=== PATIENT | female | born 1980 | race Caucasian/White ===

== ENCOUNTER 2020-08-04 11:16 | Outpatient (REF) | payer OTHER, SELFPAY ==
[2020-08-05 08:38] LABS: HBS Num1 170.31 mIU/mL (0-7.99); ~Hepatitis B Surface Antibody REACTIVE (Nonreactive)
[2020-08-05 21:52] LABS: Rubella IgG Antibody 4.62 index; Rubeola IgG (Measles) >300.00 AU/mL
== END 2020-08-04 11:17 | disposition home or self-care (01) ==
LOC: HO.OHS 11:16
PROVIDERS: Visit Provider Internal Medicine
DX: Z02.1 Encounter for pre-employment examination (principal); Z11.1 Encounter for screening for respiratory tuberculosis
CPT/HCPCS: 86481; 86706; 86735; 86762; 86765; 86787

== ENCOUNTER 2020-09-23 06:59 | Outpatient (REF) | payer OTHER, SELFPAY ==
[2020-09-23 07:20] LABS: COVID-19 Test Negative (Negative)
== END 2020-09-23 07:00 | disposition home or self-care (01) ==
LOC: HO.EMPCOV 06:59
PROVIDERS: PCP Internal Medicine Sports Medicine; Visit Provider Internal Medicine
DX: Z20.828 Contact with and (suspected) exposure to other viral communicable diseases (principal)
CPT/HCPCS: 87635; C9803

== ENCOUNTER → 2021-04-06 08:12 | Outpatient (BNVA) | payer OTHER, SELFPAY | PROVIDERS: PCP Internal Medicine Sports Medicine; Visit Provider Physician Assistant ==

== ENCOUNTER → 2021-05-22 15:19 | Outpatient (BNVA) | payer OTHER, SELFPAY | PROVIDERS: PCP Internal Medicine Sports Medicine; Visit Provider Physician Assistant ==

== ENCOUNTER 2021-05-27 08:30 | Outpatient (REF) | payer OTHER, SELFPAY ==
[2021-05-27 11:24] LABS: MANUAL DIFF FLAG NO
[2021-05-27 11:35] LABS: Basophils Absolute Auto 0.1 X10*3/uL (0.0-0.2); Basophils Percent Auto 0.5 % (0-2); Eosinophils Absolute Auto 0.2 X10*3/uL (0.0-0.4); Eosinophils Percent Auto 2.5 % (0-4); Hematocrit 39.5 % (37-47); Hemoglobin 12.4 g/dl (12.0-16.0); Imm Gran Abs Auto 0.04 X10*3/uL (0.00-0.03); Imm Gran Pct Auto 0.4 % (0.0-0.4); Lymphocytes Absolute Auto 1.7 X10*3/uL (1.2-4.9); Lymphocytes Percent Auto 17.4 % (20-40); Mean Corpuscular HGB Conc 31.4 g/dl (31.0-35.0); Mean Corpuscular Hemoglobin 27.3 pg (27.0-33.0); Mean Platelet Volume 9.4 fL (9.4-12.3); Monocytes Absolute Auto 0.6 X10*3/uL (0.1-1.2); Monocytes Percent Auto 6.6 % (2-11); Neutrophils Absolute Auto 7.1 X10*3/uL (2.0-8.3); Neutrophils Percent Auto 72.6 % (45-73); Platelet Count 463 X10*3/uL (160-400); Red Blood Count 4.54 X10*6/uL (4.20-5.50); Red Cell Distribution Width 13.7 % (11.0-16.0); White Blood Count 9.8 X10*3/uL (4.8-10.8)
[2021-05-27 11:42] LABS: Estimated Average Glucose 114 mg/dL; Hemoglobin A1c % 5.6 %
[2021-05-27 12:11] LABS: Alanine Aminotransferase 15 U/L (0-31); Alkaline Phosphatase 111 U/L (39-117); Anion Gap 15 (12-20); Aspartate Amino Transferase 17 U/L (5-31); Bilirubin Total 0.5 mg/dL (0.0-1.0); Blood Urea Nitrogen 8 mg/dL (9-16); C Reactive Protein 1.37 mg/dL (< or = 0.50); Calcium 9.2 mg/dL (8.4-10.2); Carbon Dioxide 25 mmol/L (22-29); Chloride 103 mmol/L (96-108); Cholesterol 151 mg/dL; Estimated Glomerular Filt Rate > 60; Glucose Random 103 mg/dL (60-115); HDL Cholesterol 47 mg/dL; Iron 42 mcg/dL (30-160); LDL Cholesterol Calculated 91 mg/dl; Percent Iron Saturation 13 % (15-50); Potassium 4.6 mmol/L (3.3-5.1); Sodium 138 mmol/L (135-145); Total Iron Binding Capacity 329 mcg/dL (228-428); Total Protein 7.5 g/dL (6.5-8.0); Triglycerides 65 mg/dL; Unsaturated Iron Binding 287 ug/dL
[2021-05-27 12:33] LABS: Ferritin 42 ng/mL (10-250); TSH reflex Free T4 1.19 uIU/mL (0.32-4.0); Vitamin D 25-OH Total 10.1 ng/mL (>30)
[2021-05-29 04:33] LABS: Folate 5.1 ng/mL (> or = 4.0); Vitamin B12 267 pg/mL (200-900)
[2021-05-29 11:36] LABS: Calcium (PTHI) 9.3 mg/dL (8.6-10.2); PTHI 89 pg/mL (14-64)
[2021-05-29 18:07] LABS: Insulin Level Total 18.8 uIU/mL
[2021-05-30 07:02] LABS: Zinc 80 mcg/dL (60-130)
[2021-05-31 17:37] LABS: Vitamin A 28 mcg/dL (38-98)
[2021-06-01 14:47] LABS: Vitamin B1 9 nmol/L (8-30)
== END 2021-05-27 08:31 | disposition home or self-care (01) ==
LOC: HO.HMGCLDS 08:30
PROVIDERS: PCP Internal Medicine; Visit Provider Physician Assistant
DX: E66.01 Morbid (severe) obesity due to excess calories (principal)
CPT/HCPCS: 36415; 80053; 80061; 82306; 82607; 82728; 82746; 83036; 83525; 83540; 83970; 84425; 84443; 84590; 84630; 85025; 86140

== ENCOUNTER → 2021-06-07 08:07 | Outpatient (BNVA) | payer OTHER, SELFPAY | PROVIDERS: PCP Internal Medicine; Visit Provider Dietitian, Registered | DX: E66.01 Morbid (severe) obesity due to excess calories (principal); Z68.44 Body mass index [BMI] 60.0-69.9, adult | CPT/HCPCS: 97803 ==

== ENCOUNTER 2021-08-10 07:15 | Outpatient (REF) | payer OTHER, SELFPAY ==
--- NOTE | ~2021-08-10 | MM_ITS ---
EXAMINATION: MM SCREENING DIGITAL BREAST TOMOSYNTHESIS, BILATERAL CLINICAL INFORMATION: Screening. Asymptomatic. Age 41. No prior breast imaging. No known family history breast cancer. The lifetime risk of breast cancer based on the Tyrer-Cuzick Model is 13%. COMPARISON: None (current study represents initial baseline exam). TECHNIQUE: Digital breast tomosynthesis is performed in both the craniocaudal and mediolateral oblique views along with computer-aided detection (CAD). Synthesized 2D images are generated from the tomosynthesis. Additional bilateral CC views and additional bilateral MLO views are provided. FINDINGS: There are scattered areas of fibroglandular density (ACR BI-RADS breast composition Category b). There are no significant masses, abnormal calcifications, or other abnormalities. There is an incidental intramammary node mid upper outer right breast. Bilateral grouped dermal calcifications are present posterior medial breasts. MM/MM tomosynthesis screening BI IMPRESSION: No mammographic evidence of malignancy. ASSESSMENT: BI-RADS 2: Benign RECOMMENDATION: Routine annual mammography screening. This patient's information was entered into a reminder system with a target due date for their next mammogram.
== END 2021-08-10 07:16 | disposition home or self-care (01) ==
LOC: HO.MAMMO 07:15
PROVIDERS: Visit Provider Internal Medicine
DX: Z12.31 Encounter for screening mammogram for malignant neoplasm of breast (principal)
CPT/HCPCS: 77063; 77067

== ENCOUNTER 2021-08-19 12:27 | Outpatient (REF) | payer OTHER, SELFPAY ==
--- NOTE | ~2021-08-19 | XR_ITS ---
EXAMINATION: XR CHEST CLINICAL INFORMATION: SOB on exertion COMPARISON: None TECHNIQUE: 2 views of the chest were obtained. FINDINGS: No significant abnormality is noted involving the heart, lungs, mediastinum, bony thorax or soft tissues. XR/XR chest 2V IMPRESSION: Unremarkable examination.
== END 2021-08-19 12:28 | disposition home or self-care (01) ==
LOC: HO.HMGCX 12:27
PROVIDERS: PCP Internal Medicine; Visit Provider Physician Assistant
DX: R06.02 Shortness of breath (principal)
CPT/HCPCS: 71046

== ENCOUNTER 2022-04-26 08:23 | Outpatient (REF) | payer OTHER, SELFPAY ==
[2022-04-26 08:47] LABS: MANUAL DIFF FLAG NO
[2022-04-26 09:02] LABS: Basophils Absolute Auto 0.1 X10*3/uL (0.0-0.2); Basophils Percent Auto 0.5 % (0-2); Eosinophils Absolute Auto 0.2 X10*3/uL (0.0-0.4); Eosinophils Percent Auto 1.6 % (0-4); Hematocrit 38.8 % (37.0-47.0); Hemoglobin 12.4 g/dl (12.0-16.0); Imm Gran Abs Auto 0.06 X10*3/uL (0.00-0.03); Imm Gran Pct Auto 0.5 % (0.0-0.4); Lymphocytes Absolute Auto 1.8 X10*3/uL (1.2-4.9); Mean Corpuscular Hemoglobin 27.1 pg (27.0-33.0); Mean Corpuscular Volume 84.9 fL (80.0-98.0); Mean Platelet Volume 9.2 fL (9.4-12.3); Monocytes Absolute Auto 0.9 X10*3/uL (0.1-1.2); Monocytes Percent Auto 7.4 % (2-11); Neutrophils Absolute Auto 8.9 x10*3/uL (2.0-8.3); Platelet Count 438 X10*3/uL (160-400); Red Blood Count 4.57 X10*6/uL (4.20-5.50); Red Cell Distribution Width 13.4 % (11.0-16.0); White Blood Count 11.8 X10*3/uL (4.8-10.8)
[2022-04-26 09:39] LABS: Alanine Aminotransferase 12 U/L (0-31); Albumin Level 3.8 g/dL (3.5-5.0); Alkaline Phosphatase 128 U/L (39-117); Anion Gap 10 (12-20); Aspartate Amino Transferase 12 U/L (5-31); Bilirubin Total 0.4 mg/dL (0.0-1.0); Blood Urea Nitrogen 5 mg/dL (9-16); Calcium 8.8 mg/dL (8.4-10.2); Carbon Dioxide 27 mmol/L (22-29); Chloride 106 mmol/L (96-108); Cholesterol 158 mg/dL; Estimated Glomerular Filt Rate > 60; Glucose Random 108 mg/dL (60-115); HDL Cholesterol 43 mg/dL; LDL Cholesterol Calculated 100 mg/dl; Potassium 4.2 mmol/L (3.3-5.1); Sodium 139 mmol/L (135-145); Total Protein 7.2 g/dL (6.5-8.0); Triglycerides 77 mg/dL
[2022-04-26 10:01] LABS: Thyroid Stimulating Hormone 1.16 uIU/mL (0.32-4.0); Vitamin D 25-OH Total 13.3 ng/mL (>30)
== END 2022-04-26 08:24 | disposition home or self-care (01) ==
LOC: HO.LAB 08:23
PROVIDERS: PCP Internal Medicine; Visit Provider Internal Medicine
DX: Z13.29 Encounter for screening for other suspected endocrine disorder (principal); Z13.21 Encounter for screening for nutritional disorder; Z13.0 Encounter for screening for diseases of the blood and blood-forming organs and certain disorders involving the immune mechanism; Z13.220 Encounter for screening for lipoid disorders
CPT/HCPCS: 36415; 80053; 80061; 82306; 84443; 85025

== ENCOUNTER 2022-08-16 07:20 | Outpatient (REF) | payer OTHER, SELFPAY ==
--- NOTE | ~2022-08-16 | MM_ITS ---
EXAMINATION: MM SCREENING DIGITAL BREAST TOMOSYNTHESIS, BILATERAL CLINICAL INFORMATION: Screening. Asymptomatic. The lifetime risk of breast cancer based on the Tyrer-Cuzick Model is 13%. COMPARISON: Mammography: August 10, 2021 TECHNIQUE: Digital breast tomosynthesis is performed in both the craniocaudal and mediolateral oblique views along with computer-aided detection (CAD). Synthesized 2D images are generated from the tomosynthesis. FINDINGS: There are scattered areas of fibroglandular density (ACR BI-RADS breast composition Category b). There are no significant masses, abnormal calcifications, or other abnormalities. MM/MM tomosynthesis screening BI IMPRESSION: No significant changes from prior exam. ASSESSMENT: BI-RADS 1: Negative RECOMMENDATION: Routine annual mammography screening. This patient's information was entered into a reminder system with a target due date for their next mammogram.
== END 2022-08-16 07:21 | disposition home or self-care (01) ==
LOC: HO.MAMMO 07:20
PROVIDERS: PCP Internal Medicine; Visit Provider Internal Medicine
DX: Z12.31 Encounter for screening mammogram for malignant neoplasm of breast (principal)
CPT/HCPCS: 77063; 77067

== ENCOUNTER 2023-03-01 10:24 | Outpatient (REF) | payer OTHER, SELFPAY ==
[2023-03-01 11:26] LABS: MANUAL DIFF FLAG NO
[2023-03-01 11:33] LABS: Basophils Absolute Auto 0.1 X10*3/uL (0.0-0.2); Basophils Percent Auto 0.5 % (0-2); Eosinophils Absolute Auto 0.1 X10*3/uL (0.0-0.4); Eosinophils Percent Auto 1.1 % (0-4); Hematocrit 41.8 % (37.0-47.0); Hemoglobin 13.4 g/dl (12.0-16.0); Imm Gran Abs Auto 0.05 X10*3/uL (0.00-0.03); Imm Gran Pct Auto 0.4 % (0.0-0.4); Lymphocytes Percent Auto 15.2 % (20-40); Mean Corpuscular HGB Conc 32.1 g/dl (31.0-35.0); Mean Corpuscular Volume 87.3 fL (80.0-98.0); Mean Platelet Volume 9.6 fL (9.4-12.3); Monocytes Absolute Auto 0.8 X10*3/uL (0.1-1.2); Neutrophils Absolute Auto 10.2 x10*3/uL (2.0-8.3); Neutrophils Percent Auto 76.8 % (45-73); Platelet Count 450 X10*3/uL (160-400); Red Blood Count 4.79 X10*6/uL (4.20-5.50); Red Cell Distribution Width 13.5 % (11.0-16.0); White Blood Count 13.3 X10*3/uL (4.8-10.8)
[2023-03-01 12:07] LABS: Alanine Aminotransferase 17 U/L (0-31); Albumin Level 4.2 g/dL (3.5-5.0); Alkaline Phosphatase 127 U/L (39-117); Anion Gap 11 (12-20); Aspartate Amino Transferase 16 U/L (5-31); Bilirubin Total 0.7 mg/dL (0.0-1.0); Blood Urea Nitrogen 8 mg/dL (9-16); Calcium 9.3 mg/dL (8.4-10.2); Carbon Dioxide 27 mmol/L (22-29); Chloride 104 mmol/L (96-108); Cholesterol 170 mg/dL; Estimated Glomerular Filt Rate > 60; Glucose Fasting 93 mg/dL (60-99); HDL Cholesterol 46 mg/dL; LDL Cholesterol Calculated 111 mg/dl; Potassium 4.4 mmol/L (3.3-5.1); Sodium 138 mmol/L (135-145); Total Protein 7.6 g/dL (6.5-8.0); Triglycerides 67 mg/dL
[2023-03-01 12:39] LABS: Folate 13.1 ng/mL (> or = 4.0); TSH reflex Free T4 1.01 uIU/mL (0.32-4.0); Vitamin B12 306 pg/mL (200-900)
[2023-03-07 22:48] LABS: Vitamin A 27 mcg/dL (38-98)
== END 2023-03-01 10:25 | disposition home or self-care (01) ==
LOC: HO.HMGCLDS 10:24
PROVIDERS: PCP Internal Medicine; Visit Provider Internal Medicine
DX: Z00.01 Encounter for general adult medical examination with abnormal findings (principal); E66.01 Morbid (severe) obesity due to excess calories; E50.9 Vitamin A deficiency, unspecified; E55.9 Vitamin D deficiency, unspecified
CPT/HCPCS: 36415; 80053; 80061; 82306; 82607; 82746; 84443; 84590; 85025

== ENCOUNTER 2023-05-20 10:01 | Outpatient (AMB) | payer OTHER, SELFPAY ==
--- NOTE | 2023-05-20 10:23 | A.OFFPC_ITS ---
Vital Signs 05/20/23 10:25 Height 5 ft 5 in Weight 329 lb BMI 54.7 BP 122/90 H Blood Pressure Location Lt brachial Position Sitting Pulse 86 Pulse Source Pulse Oximeter Pulse Oximetry (%) 99 Oxygen Delivery Method Room Air Intake Visit Reasons: weight check Intake Note: Pt is here today for a wgt check Allergies No Known Allergies Allergy (Verified 05/21/23 01:38) Medication List - Last Reconciled 05/21/23 by Aurora Gil MD semaglutide (weight loss) (Wegovy) 0.25 mg (0.5 mL) subcut QWEEK Tobacco use date assessed: 05/20/23 Dental Screening Dental Screen Date: 05/20/23 Did you have a dental visit in the last 12 months?: No Was dental information given to patient?: Patient has dentist HPI weight check HPI Details 43-year-old lady here today for follow-up regarding weight loss after starting wegovy. She has been on this now for the last month and a half and has lost 14 lb . Tolerating medication well, gets an occasional episode of nausea, with no accompanying vomiting, no done a g of hers couple of days after her injection. FORMERLY [facility] Medical History (Updated 05/21/23 @ 01:43 by Aurora Gli MD) Cervical cancer screening Morbid obesity Vitamin D deficiency Surgical History Hx of excision of mass Family History Mother Hypertension Anemia Esophageal cancer Father Unknown family medical history Sister Hypothyroid Depression Hypertension Paternal Aunt Ovarian cancer Maternal Grandmother Breast cancer Diabetes mellitus Other Mental health disorder Social History Housing: House Alcohol intake: current Alcohol intake frequency: former alcohol drinker Patient Tobacco Use Status: Never used Tobacco e-Cigarette/Vaping Use: Never Used service: No Current occupational status: employed Cognitive needs: No Hearing needs: No Vision needs: No Questionnaire Thrive Questionnaire Date Thrive assessed: 05/20/23 I am a: Patient What is your living situation today?: I have a steady place to live Within the past 12 months, did the food you bought not last and you didn't have the money to get more?: Never true Within the past 12 months, did you worry whether your food would run out before you got money to buy more?: Never true Do you have trouble paying for medicines?: No Do you have trouble getting transportation to medical appointments?: No Do you have trouble paying your heating and electricity bill?: No Do you have trouble taking care of your child, family member or friend?: No Do you have trouble with day-to-day activities such as bathing, preparing meals, shopping, managing finances, etc.?: No Are you currently unemployed and looking for a job?: No Are you interested in more education?: No AUDIT C Alcohol Use Questionnaire (AUDIT-C) 1. How often do you have a drink containing alcohol?: Never Total Score: 0 NEO-7 AMB Questionnaire NEO-7 Date NEO - 7 assessed: 03/28/23 Source: Developed by Drs. Cosme Milian, Fide Boyd, Alvarado Cortez and colleagues, with an educational luciano from [employer]. Review of Systems Const All systems reviewed & are unremarkable except as noted in HPI and below Physical exam (Primary Care) Vital Signs: Last Vital Signs Pulse 86 05/20/23 10:25 BP 122/90 H 05/20/23 10:25 Pulse Ox 99 05/20/23 10:25 Oxygen Delivery Method Room Air 05/20/23 10:25 BMI result Body Mass Index 54.7 Tobacco/Smoking Status: Tobacco use Status Tobacco use date assessed 05/20/23 05/20/23 10:31 Patient Tobacco Use Status Never used Tobacco 05/20/23 10:31 e-Cigarette/Vaping Use Never Used 05/20/23 10:31 Thrive Assessment: Date of Thrive Assessment Date Thrive assessed 05/20/23 05/20/23 13:07 Const General: cooperative and comfortable Nutritional Appearance: obese morbidly obese Orientation/consciousness: patient oriented x3 Resp Auscultation: clear to auscultation bilaterally Cardio Rate: regular rate Rhythm: regular rhythm Heart sounds: S1 normal heart sound present and S2 normal heart sound present Neuro General: patient oriented x3, tone normal, moves all extremities, no focal motor deficits and CN's II-XI intact bilaterally Cognition (Neuro): normal cognition Gait exam (Neuro): Normal gait present Assessment and Plan Assessment & Plan (1) Morbid obesity: Code(s): E66.01 - Morbid (severe) obesity due to excess calories Plan: Tolerating Wegovy., will continue on current dose, refill sent for 0.25 mg injection, to be given subcutaneously weekly continue with adhering to healthy eating habits and getting regular exercise, will see her back for follow-up in June 2023 (2) Vitamin A deficiency: Code(s): E50.9 - Vitamin A deficiency, unspecified (3) Vitamin D deficiency: Code(s): E55.9 - Vitamin D deficiency, unspecified (4) Leukocytosis: Code(s): D72.829 - Elevated white blood cell count, unspecified Orders: Orders Vitamin B12 and Folate 05/20/23 D72.829 - Elevated white blood cell count, unspecified, E50.9 - Vitamin A deficiency, unspecified, E55.9 - Vitamin D deficiency, unspecified, E66.01 - Morbid (severe) obesity due to excess calories Comprehensive [place]. Panel Fast 05/20/23 D72.829 - Elevated white blood cell count, unspecified, E50.9 - Vitamin A deficiency, unspecified, E55.9 - Vitamin D deficiency, unspecified, E66.01 - Morbid (severe) obesity due to excess calories Vitamin A 05/20/23 D72.829 - Elevated white blood cell count, unspecified, E50.9 - Vitamin A deficiency, unspecified, E55.9 - Vitamin D deficiency, unspecified, E66.01 - Morbid (severe) obesity due to excess calories Vitamin D 25-OH Total 05/20/23 D72.829 - Elevated white blood cell count, unspecified, E50.9 - Vitamin A deficiency, unspecified, E55.9 - Vitamin D deficiency, unspecified, E66.01 - Morbid (severe) obesity due to excess calories Complete Blood Count Auto Diff 05/20/23 D72.829 - Elevated white blood cell count, unspecified, E50.9 - Vitamin A deficiency, unspecified, E55.9 - Vitamin D deficiency, unspecified, E66.01 - Morbid (severe) obesity due to excess calories Medications: Refilled semaglutide (weight loss) (Wegovy) 0.25 mg (0.5 mL) subcut QWEEK 2 mL 2RF Coding Level of Care Code Est Pt Level 3 (19116) Diagnoses Morbid obesity E66.01 Vitamin A deficiency E50.9 Vitamin D deficiency E55.9 Leukocytosis D72.829
[2023-05-20 10:25] VITALS: BP 122/90; PULSE 86; O2SAT 99; BMI 54.7
== END 2023-05-20 12:26 | disposition home or self-care (01) ==
PROVIDERS: PCP Internal Medicine; Visit Provider Internal Medicine
DX: E50.9 Vitamin A deficiency, unspecified (principal); E55.9 Vitamin D deficiency, unspecified; E66.01 Morbid (severe) obesity due to excess calories; Z68.43 Body mass index [BMI] 50.0-59.9, adult; D72.829 Elevated white blood cell count, unspecified
CPT/HCPCS: 99213

== ENCOUNTER 2023-06-21 10:17 | Outpatient (AMB) | payer OTHER, SELFPAY ==
[2023-06-21 10:37] VITALS: BP 142/84; PULSE 88; O2SAT 99; BMI 54.7
--- NOTE | 2023-06-21 10:37 | A.OFFPC_ITS ---
Vital Signs 06/21/23 10:37 Height 5 ft 5 in Weight 329 lb BMI 54.7 BP 142/84 H Blood Pressure Location Rt brachial Position Sitting Pulse 88 Pulse Source Pulse Oximeter Pulse Oximetry (%) 99 Oxygen Delivery Method Room Air Intake Visit Reasons: weight check Allergies No Known Allergies Allergy (Verified 05/21/23 01:38) Medication List - Last Reconciled 06/25/23 by Aurora Gil MD semaglutide (weight loss) (Wegovy) 1 mg (0.5 mL) subcut QWEEK Tobacco use date assessed: 05/20/23 HPI weight check HPI Details 43-year-old lady here today for follow-up on her weight loss after starting Wegovy . She has been taking 0.25 mg dose now for the last 3 months, and has lost weight, since last month she has been static with her weight, despite following getting regular exercise. She has not been able to get a prescription for the next higher dose due medication being out of stock. Has been tolerating medication well, with no adverse effects noted [facility] Medical History Cervical cancer screening Morbid obesity Vitamin D deficiency Surgical History Hx of excision of mass Family History Mother Hypertension Anemia Esophageal cancer Father Unknown family medical history Sister Hypothyroid Depression Hypertension Paternal Aunt Ovarian cancer Maternal Grandmother Breast cancer Diabetes mellitus Other Mental health disorder Social History Housing: House Alcohol intake: current Alcohol intake frequency: former alcohol drinker Patient Tobacco Use Status: Never used Tobacco e-Cigarette/Vaping Use: Never Used service: No Current occupational status: employed Cognitive needs: No Hearing needs: No Vision needs: No Questionnaire Thrive Questionnaire Date Thrive assessed: 05/20/23 NEO-7 AMB Questionnaire NEO-7 Date NEO - 7 assessed: 03/28/23 Source: Developed by Drs. Cosme Milian, Fide Boyd, Alvarado Cortez and colleagues, with an educational luciano from [employer]. Review of Systems Const All systems reviewed & are unremarkable except as noted in HPI and below Physical exam (Primary Care) Vital Signs: Last Vital Signs BP 142/84 H 06/21/23 10:37 Tobacco/Smoking Status: Tobacco use Status Tobacco use date assessed 05/20/23 06/21/23 10:37 Patient Tobacco Use Status Never used Tobacco 06/21/23 10:37 e-Cigarette/Vaping Use Never Used 06/21/23 10:37 Thrive Assessment: Date of Thrive Assessment Date Thrive assessed 05/20/23 06/21/23 10:37 Const Nutritional Appearance: obese morbidly obese Orientation/consciousness: patient oriented x3 HENMT Mouth: Normal oral and palatal mucosa present, oropharynx normal and moist mucous membranes Neck Neck: Yes full ROM, Yes no lymphadenopathy and Yes supple Resp Auscultation: clear to auscultation bilaterally Cardio Rate: regular rate Rhythm: regular rhythm Heart sounds: S1 normal heart sound present and S2 normal heart sound present GI Inspection: Yes obesity Palpation (GI): Soft to palpation, nontender, no guarding and no masses Neuro General: patient oriented x3, tone normal, moves all extremities, no focal motor deficits and CN's II-XI intact bilaterally Cognition (Neuro): normal cognition Gait exam (Neuro): Normal gait present Assessment and Plan Assessment & Plan (1) Morbid obesity: Code(s): E66.01 - Morbid (severe) obesity due to excess calories Plan Increased dose of Wegovy to 1 mg, to be injected subcutaneously once a week for the next 4 weeks. 0.5 mg dose is currently unavailable at present time. Continue with adhering to recommended diet and getting regular exercise. Schedule follow-up in 4 weeks Medications: New semaglutide (weight loss) (Wegovy) administer weeks 9 through 12 of therapy 1 mg (0.5 mL) subcut QWEEK 2 mL 0RF E66.01 - Morbid (severe) obesity due to excess calories Discontinued semaglutide (weight loss) (Wegovy) Discontinued Reason: Doctor's Order 0.25 mg (0.5 mL) subcut QWEEK 2 mL 2RF Coding Level of Care Code Est Pt Level 3 (10721) Diagnoses Morbid obesity E66.01
== END 2023-06-21 10:37 | disposition home or self-care (01) ==
PROVIDERS: PCP Internal Medicine; Visit Provider Internal Medicine
DX: E66.01 Morbid (severe) obesity due to excess calories (principal); Z68.43 Body mass index [BMI] 50.0-59.9, adult
CPT/HCPCS: 99213

== ENCOUNTER 2023-07-24 08:33 | Outpatient (REF) | payer OTHER, SELFPAY ==
[2023-07-24 16:35] LABS: CT PCR NOT DETECTED (Not Detect.); NG PCR NOT DETECTED (Not Detect.)
[2023-07-25 12:33] LABS: BV Int Neg Control Negative (Negative); BV Int Pos Control Positive (Positive)
== END 2023-07-24 08:34 | disposition home or self-care (01) ==
LOC: HO.LNP 08:33
PROVIDERS: PCP Internal Medicine; Visit Provider Advanced Practice Midwife
DX: Z12.4 Encounter for screening for malignant neoplasm of cervix (principal); Z11.51 Encounter for screening for human papillomavirus (HPV); Z20.2 Contact with and (suspected) exposure to infections with a predominantly sexual mode of transmission
CPT/HCPCS: 0353U; 87480; 87510; 87624; 87660; 88142

== ENCOUNTER 2023-07-24 08:33 | Outpatient (AMB) | payer OTHER, SELFPAY ==
[2023-07-24 08:55] VITALS: BP 120/90; BMI 53.6
--- NOTE | 2023-07-24 08:55 | A.OFFVIS_ITS ---
Intake Vital Signs 07/24/23 08:55 Height 5 ft 5 in Weight 322 lb BMI 53.6 BP 120/90 H Intake Visit Reasons: OUTREACH COORDINATOR Annual/PCP Ref [employer] Con[employer] Required: No Information Interpreted: non-clinical & clinical Insurance Follow Up Specialist: Insurance Follow Up Specialist Present ([place]) Allergies No Known Allergies Allergy (Verified 07/24/23 08:58) Medication List - Last Reconciled 07/24/23 by Beth Castaneda CNM semaglutide (weight loss) 1.7 mg (0.75 mL) subcut QWEEK Is last menstrual period known: Yes Last menstrual period: 06/30/23 Post menopausal: No HPI OUTREACH COORDINATOR Annual/PCP Ref HPI Details 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 Her last Pap was in 2001 with ASCUS she said she did not know. She had chlamydia in the past she is sexually active with the father of her children. She does not want to get she is not using anything for control at this time. She is actively working on weight loss and using the semaglutide medication and feels that it really is helping her to eat more regularly during the day and she is trying to guide her choices. She will be following up with her primary care provider about this and her blood pressure soon. She tried the weight management program in the past but did not feel it was the right fit for her when 1 of the providers left the system. She has used hormonal methods in the past for control and is not interested in anything with hormones again and would not want an IUD she might be interested in getting her tubes tied but that is all she is interested in. She is trying to make healthier choices with eating and she is walking for exercise she has lost about 30 lb since she started with the medication in February and this renewed efforts [facility] Medical History (Updated 07/24/23 @ 09:46 by Beth Castaneda CNM) Cervical cancer screening Vitamin D deficiency Morbid obesity Surgical History Hx of excision of mass Family History Mother Hypertension Anemia Esophageal cancer Father Unknown family medical history Sister Hypothyroid Depression Hypertension Paternal Aunt Ovarian cancer Maternal Grandmother Breast cancer Diabetes mellitus Other Mental health disorder Social History Housing: House Alcohol intake: current Alcohol intake frequency: former alcohol drinker Patient Tobacco Use Status: Never used Tobacco e-Cigarette/Vaping Use: Never Used service: No Current occupational status: employed Cognitive needs: No Hearing needs: No Vision needs: No Female Reproductive History Menstrual Age of Menarche: 12 Date of last menstrual period: 06/30/23 control method: none Total pregnancies: 5 Full term: 2 Number of Living Children: 2 Ab spontaneous: 3 Date of last pap smear: 09/30/02 (ASCUS) History of abnormal pap smear: Yes (2001 ASCUS) History of STI: Yes Date of Mammogram: 08/16/22 Physical Exam Vital Signs: Last Vital Signs BP 120/90 H 07/24/23 08:55 BMI result Body Mass Index 53.6 Const Other: Extreme obesity General: healthy appearing, comfortable, no acute distress, well developed and alert Nutritional Appearance: average body habitus Orientation/consciousness: patient oriented x3 Limitations: no limitations HEENT Head: Yes normocephalic Neck Neck: Yes normal visual inspection Chest Chest palpation & inspection: normal inspection of the chest Breast/axilla inspection: normal inspection of the breasts and normal inspection of the axillae Breast/axilla palpation: normal palpation of the breasts and normal palpation of the axillae Resp Effort & Inspection: normal respiratory effort GI Inspection: Yes normal to inspection Palpation (GI): Soft to palpation and nontender Other: Exam somewhat limited by adipose tissue cervix appears pink healthy moist and multiparous mobile nontender uterus unable to palpate completely but is mobile and nontender and not enlarged as far as can be ascertained. Good tone with Kegel. General: Yes bladder normal to palpation External Female Exam: normal external appearance and normal appearance of the urethra Speculum Exam - Vagina: normal appearance of the vagina, normal palpation and normal vaginal discharge Speculum Exam - Cervix: normal appearance of the cervix, normal palpation and nontender Bimanual exam- vagina & uterus: normal bimanual exam, normal palpation, uterine size normal, bladder normal to palpation, consistency normal, normal palpation, uterine mobility normal, uterine shape normal, No Cervical tenderness present, non-tender and no cervical motion tenderness Bimanual Exam- Adnexa, other: normal adnexae, no masses, normal and No adnexal tenderness Neuro General: patient oriented x3 Assessment & Plan Assessment & Plan (1) Cervical cancer screening: Comment: History of ASCUS 2001; no Paps since until 07/24/2023. Code(s): Z12.4 - Encounter for screening for malignant neoplasm of cervix (2) Morbid obesity: Comment: bmi 53 07/24/23, working on wt loss w semaglutide and her pcc. Code(s): E66.01 - Morbid (severe) obesity due to excess calories (3) control counseling: Comment: Currently not contracepting, not interested in IUDs, might only be interested in tubal ligation. Code(s): Z30.09 - Encounter for other general counseling and advice on contraception Plan -----Discussed in this visit the following: healthy balanced diet, regular and consistent exercise, getting recommended health screens, doing the best she can for her particular health concerns, kegel exercises, pap smear screening and followup recommendations, mammography screening and SBE, normal changes in cycles in her life stage--- . Reviewed options of control in her particular situation which would be limited to 1 of the IUDs discussed the additional protection the Mirena offers for abnormal bleeding. She currently always gets regular periods at most they might be a little bit late that is all. She was not interested in them in any case and is not interested in anything with hormones. She might be interested in getting her tubes tied but I did discuss the physical challenges of that but she may make an appointment with Dr. Granados if she chooses to pursue this. Pap smear is done as well as tests for infection. She has no symptoms and her exam appeared within normal limits. Discussed her efforts at weight loss and the challenges and discussed dietary choices that could help her efforts as well. She is continuing on her course at this time. She is up-to-date on her mammograms as well. She will be getting her next 1 within the month. She does self-breast exam as well. Coding Level of Care Code New Pt Prev Care 40-64y(59959) Diagnoses Cervical cancer screening Z12.4 Morbid obesity E66.01 control counseling Z30.09
== END 2023-07-24 09:45 | disposition home or self-care (01) ==
LOC: HO.HWS 08:33
PROVIDERS: PCP Internal Medicine; Visit Provider Advanced Practice Midwife
DX: Z01.419 Encounter for gynecological examination (general) (routine) without abnormal findings (principal); E66.01 Morbid (severe) obesity due to excess calories; Z68.43 Body mass index [BMI] 50.0-59.9, adult
CPT/HCPCS: 99386

== ENCOUNTER 2023-08-23 07:19 | Outpatient (REF) | payer OTHER, SELFPAY | END 2023-08-23 07:20 | disposition home or self-care (01) | LOC: HO.MAMMO 07:19 | PROVIDERS: PCP Internal Medicine; Visit Provider Internal Medicine | DX: Z12.31 Encounter for screening mammogram for malignant neoplasm of breast (principal) | CPT/HCPCS: 77063; 77067 ==

== ENCOUNTER → 2023-08-23 07:30 | Outpatient (BNV) | payer OTHER, SELFPAY | PROVIDERS: PCP Internal Medicine; Visit Provider Radiology Diagnostic Radiology | DX: Z12.31 Encounter for screening mammogram for malignant neoplasm of breast (principal) | CPT/HCPCS: 77063; 77067 ==

== ENCOUNTER 2023-10-07 08:48 | Outpatient (REF) | payer OTHER, SELFPAY ==
[2023-10-07 11:32] LABS: MANUAL DIFF FLAG NO
[2023-10-07 11:41] LABS: Basophils Percent Auto 0.2 % (0-2); Eosinophils Absolute Auto 0.7 X10*3/uL (0.0-0.4); Hematocrit 44.7 % (37.0-47.0); Imm Gran Abs Auto 0.05 X10*3/uL (0.00-0.03); Imm Gran Pct Auto 0.4 % (0.0-0.4); Lymphocytes Absolute Auto 1.6 X10*3/uL (1.2-4.9); Lymphocytes Percent Auto 11.2 % (20-40); Mean Corpuscular HGB Conc 31.3 g/dl (31.0-35.0); Mean Corpuscular Hemoglobin 27.6 pg (27.0-33.0); Mean Platelet Volume 9.9 fL (9.4-12.3); Monocytes Absolute Auto 0.8 X10*3/uL (0.1-1.2); Monocytes Percent Auto 5.7 % (2-11); Neutrophils Absolute Auto 10.8 x10*3/uL (2.0-8.3); Neutrophils Percent Auto 77.5 % (45-73); Platelet Count 460 X10*3/uL (160-400); Red Blood Count 5.08 X10*6/uL (4.20-5.50); Red Cell Distribution Width 14.2 % (11.0-16.0); White Blood Count 13.9 X10*3/uL (4.8-10.8)
[2023-10-07 12:28] LABS: Alanine Aminotransferase 22 U/L (0-31); Albumin Level 4.1 g/dL (3.5-5.0); Alkaline Phosphatase 88 U/L (39-117); Anion Gap 13 (12-20); Aspartate Amino Transferase 20 U/L (5-31); Bilirubin Total 0.8 mg/dL (0.0-1.0); Blood Urea Nitrogen 6 mg/dL (9-16); Calcium 9.7 mg/dL (8.4-10.2); Carbon Dioxide 26 mmol/L (22-29); Chloride 105 mmol/L (96-108); Estimated Glomerular Filt Rate > 60; Glucose Fasting 106 mg/dL (60-99); Potassium 3.6 mmol/L (3.3-5.1); Sodium 140 mmol/L (135-145); Total Protein 7.9 g/dL (6.5-8.0)
[2023-10-07 12:39] LABS: Folate 3.7 ng/mL (> or = 4.0); Vitamin B12 274 pg/mL (200-900)
[2023-10-07 12:45] LABS: Vitamin D 25-OH Total 17.8 ng/mL (>30)
[2023-10-11 03:53] LABS: Vitamin A 28 mcg/dL (38-98)
== END 2023-10-07 08:49 | disposition home or self-care (01) ==
LOC: HO.HMGCLDS 08:48
PROVIDERS: PCP Internal Medicine; Visit Provider Internal Medicine
DX: E50.9 Vitamin A deficiency, unspecified (principal); E55.9 Vitamin D deficiency, unspecified; E66.01 Morbid (severe) obesity due to excess calories; D72.829 Elevated white blood cell count, unspecified
CPT/HCPCS: 36415; 80053; 82306; 82607; 82746; 84590; 85025

== ENCOUNTER 2024-01-25 08:31 | Outpatient (REF) | payer OTHER, SELFPAY ==
[2024-01-25 11:45] LABS: Alanine Aminotransferase 13 U/L (0-31); Albumin Level 3.8 g/dL (3.5-5.0); Alkaline Phosphatase 96 U/L (39-117); Anion Gap 10 (12-20); Aspartate Amino Transferase 14 U/L (5-31); Bilirubin Direct 0.2 mg/dL (0.0-0.5); Bilirubin Total 0.5 mg/dL (0.0-1.0); Blood Urea Nitrogen 5 mg/dL (9-16); Calcium 9.2 mg/dL (8.4-10.2); Carbon Dioxide 28 mmol/L (22-29); Chloride 106 mmol/L (96-108); Estimated Glomerular Filt Rate > 60; Glucose Fasting 88 mg/dL (60-99); Potassium 3.7 mmol/L (3.3-5.1); Sodium 140 mmol/L (135-145); Total Protein 7.5 g/dL (6.5-8.0)
[2024-01-25 12:01] LABS: Vitamin D 25-OH Total 40.2 ng/mL (>30)
[2024-01-25 12:13] LABS: Folate 11.2 ng/mL (> or = 4.0); Vitamin B12 335 pg/mL (200-900)
== END 2024-01-25 08:32 | disposition home or self-care (01) ==
LOC: HO.HMGCLDS 08:31
PROVIDERS: PCP Internal Medicine; Visit Provider Internal Medicine
DX: E55.9 Vitamin D deficiency, unspecified (principal); E66.01 Morbid (severe) obesity due to excess calories
CPT/HCPCS: 36415; 80048; 80076; 82306; 82607; 82746

== ENCOUNTER 2024-03-05 09:10 | Outpatient (AMB) | payer OTHER, SELFPAY ==
[2024-03-05 10:21] VITALS: BP 112/84; PULSE 75; O2SAT 100; BMI 42.9
--- NOTE | 2024-03-05 10:21 | MHC.PC.OV ---
Vital Signs 03/05/24 10:21 Height 5 ft 5 in Weight 258 lb BMI 42.9 BP 112/84 Blood Pressure Location Lt brachial Position Sitting Pulse 75 Pulse Source Pulse Oximeter Pulse Oximetry (%) 100 Oxygen Delivery Method Room Air Intake Visit Reasons: PE Intake Note: Pt is here today for her PE: Last mammogram 08/23/23, pap smear 07/24/23 Allergies No Known Allergies Allergy (Verified 03/05/24 10:56) Medication List - Last Reconciled 03/05/24 by Aurora Gil MD amoxicillin-pot clavulanate 875-125 mg 1 tab PO Q12H cholecalciferol (vitamin D3) 50 mcg PO DAILY folic acid 1 mg PO DAILY Wegovy (semaglutide (weight loss)) 2.4 mg (0.75 mL) subcut QWEEK NS Tobacco use date assessed: 03/05/24 Dental Screening Dental Screen Date: 03/05/24 Did you have a dental visit in the last 12 months?: Yes Did you have a dental problem in the last 6 months where you did not have access to dental care?: No Was dental information given to patient?: Patient has dentist HPI PE HPI Details [age] year old lady here today for her physical exam. She is up-to-date with her cervical cancer screening and screening mammogram. She is currently on Wegovy for weight loss and has been able to continue losing weight on current treatment, awaiting medication well without any adverse effects reported. Has been combining this with diet and regular exercise. [facility] Medical History Cervical cancer screening Vitamin D deficiency Morbid obesity Surgical History Hx of excision of mass Family History Mother Hypertension Anemia Esophageal cancer Father Unknown family medical history Sister Hypothyroid Depression Hypertension Paternal Aunt Ovarian cancer Maternal Grandmother Breast cancer Diabetes mellitus Other Mental health disorder Social History Housing: House Alcohol intake: current Alcohol intake frequency: former alcohol drinker Patient Tobacco Use Status: Never used Tobacco e-Cigarette/Vaping Use: Never Used service: No Current occupational status: employed Cognitive needs: No Hearing needs: No Vision needs: No Female Reproductive History Menstrual Age of Menarche: 12 Questionnaire PHQ-9 Over the last 2 weeks, how often have you been bothered by any of the following problems? 1. Little interest or pleasure in doing things: not at all 2. Feeling down, depressed, or hopeless: not at all 3. Trouble falling or staying asleep, or sleeping too much: not at all 4. Feeling tired or having little energy: not at all 5. Poor appetite or overeating: not at all 6. Feeling bad about yourself - or that you are a failure or have let yourself or your family down: not at all 7. Trouble concentrating on things, such as reading the newspaper or watching television: not at all 8. Moving or speaking so slowly that other people could have noticed. Or the opposite - being so fidgety or restless that you have been moving around a lot more than usual: not at all 9. Thoughts that you would be better off or of hurting yourself in some way: not at all Total score: 0 Depression Screening Interpretation: Negative Depression Screening Done: Yes 14137 - PHQ-9 Billing: Yes Source: Developed by Drs. Cosme Milian, Fide Boyd, Alvarado Cortez and colleagues, with an educational luciano from [employer]. Thrive Questionnaire Date Thrive assessed: 03/05/24 I am a: Patient What is your living situation today?: I have a steady place to live Within the past 12 months, did the food you bought not last and you didn't have the money to get more?: Never true Within the past 12 months, did you worry whether your food would run out before you got money to buy more?: Never true Do you have trouble paying for medicines?: No Do you have trouble getting transportation to medical appointments?: No Do you have trouble paying your heating and electricity bill?: No Do you have trouble taking care of your child, family member or friend?: No Do you have trouble with day-to-day activities such as bathing, preparing meals, shopping, managing finances, etc.?: No Are you interested in more education?: No THRIVE Score: 0 AUDIT C Alcohol Use Questionnaire (AUDIT-C) 1. How often do you have a drink containing alcohol?: Never Total Score: 0 NEO-7 AMB Questionnaire NEO-7 Date NEO - 7 assessed: 03/05/24 Feeling nervous, anxious, or on edge: 0 = Not at all Not being able to stop or control worryin = Not at all Worrying too much about different things: 0 = Not at all Trouble relaxin = Not at all Being so restless that it is hard to sit still: 0 = Not at all Becoming easily annoyed or irritable: 0 = Not at all Feeling afraid as if something awful might happen: 0 = Not at all Total NEO-7 score (0-4 normal; 5-9 mild; 10-14 moderate; 15-21 severe): 0 Source: Developed by Drs. Cosme Milian, Fide Boyd, Alvarado Cortez and colleagues, with an educational luciano from [employer]. Review of Systems Const Denies body aches, Denies fatigue, Denies headache(s) and Denies weakness Eyes Denies change in vision ENT Denies dizziness, Denies headache(s), Denies nasal congestion, Denies nasal discharge and Denies sore throat Card Denies chest pain, Denies lightheadedness, Denies palpitations and Denies dyspnea Resp Denies chest congestion, Denies cough, Denies dyspnea and Denies wheezing GI Denies abdominal pain, Denies change in bowel habits and Denies heartburn Denies hematuria, Denies urinary frequency, Denies dysuria and Denies urinary urgency Musc Reports no additional complaints Skin/Breast Denies breast pain, Denies breast mass, Denies lesions and Denies rash Neuro Denies dizziness, Denies headache(s) and Denies weakness Psych Reports no additional complaints Endo Denies fatigue, Denies polydipsia, Denies polyuria and Denies palpitations Deonte/Lymph Denies easy bruising Aller/Immun Denies seasonal rhinorrhea and Denies wheezing Physical exam (Primary Care) Vital Signs: Last Vital Signs Pulse 75 03/05/24 10:21 BP 112/84 03/05/24 10:21 Pulse Ox 100 03/05/24 10:21 Oxygen Delivery Method Room Air 03/05/24 10:21 BMI result Body Mass Index 42.9 Tobacco/Smoking Status: Tobacco use Status Tobacco use date assessed 03/05/24 03/05/24 10:24 Patient Tobacco Use Status Never used Tobacco 03/05/24 10:24 e-Cigarette/Vaping Use Never Used 03/05/24 10:24 PHQ-9: PHQ-9 Score PHQ-9: Total score 0 03/05/24 10:57 Depression Screening Interpretation: Negative Thrive Assessment: Date of Thrive Assessment Date Thrive assessed 03/05/24 03/05/24 10:31 Const General: cooperative and comfortable Orientation/consciousness: patient oriented x3 HENMT Head: Yes normocephalic Ears: external ears normal, TM's normal bilaterally and EAC's normal General nose exam: Normal external nose present Face and sinus: Yes face symmetric Mouth: Normal oral and palatal mucosa present, oropharynx normal and moist mucous membranes Eyes General: appearance normal, both eyes and all related structures Neck Neck: Yes full ROM, Yes no lymphadenopathy and Yes supple Thyroid: Thyroid normal Chest Breast/axilla palpation: normal palpation of the breasts Resp Auscultation: clear to auscultation bilaterally Cardio Rate: regular rate Rhythm: regular rhythm Heart sounds: S1 normal heart sound present and S2 normal heart sound present GI Palpation (GI): Soft to palpation, nontender, no guarding and no masses Auscultation: normal bowel sounds General: Yes no CVA tenderness and Yes deferred (Goes to OBGYN) Back/Spine/Pelvis Back: no CVA tenderness and No back tenderness Skin General skin exam: no rashes or lesions noted Neuro General: patient oriented x3, tone normal, moves all extremities, no focal motor deficits and CN's II-XI intact bilaterally Cognition (Neuro): normal cognition Gait exam (Neuro): Normal gait present Extrem General: Yes full ROM, Yes no joint enlargement and Yes no clubbing, cyanosis or edema Psych Appearance: grossly normal and well kempt Mental Status: mental status grossly normal Speech and movement: Normal speech and movement present Affect: normal affect Results Reviewed Results Reviewed: Name: Laine Lew Age/Sex: 43/F : 1980 Unit#: [id number] Attend Dr: Aurora Gil MD Re01/25/24 Status: DEP REF Location: [facility] Disch: SPEC : [id number] VALDO: 01/25/24 STATUS: COMP REQ : [id number] RECD: 01/25/24-[address]: Aurora Gil MD COMP: 01/25/24-1200 ENTERED: 01/25/24 [facility] DR: ORDERED: Liver Panel, Met Prof Fast, Vitamin D 25-OH Test Result Flag Reference Sodium 140 135-145 mmol/L Potassium 3.7 3.3-5.1 mmol/L CL 106 96-108 mmol/L CO2 28 22-29 mmol/L Gap 10 L 12-20 BUN 5 L 9-16 mg/dL Creat 0.75 0.5-1.4 mg/dL EGFR > 60 NOTE: For -Sy[place] individuals, multiply the result by 1.210. Chronic Kidney Disease: Estimated GFR < 60 mL/min/1.73m2 Severe Kidney Disease: Estimated GFR < 15 mL/min/1.73m2 FBS 88 60-99 mg/dL CA 9.2 8.4-10.2 mg/dL Total Bili 0.5 0.0-1.0 mg/dL Direct Bili 0.2 0.0-0.5 mg/dL AST (GOT) 14 5-31 U/L ALT (GPT) 13 0-31 U/L Protein, Total 7.5 6.5-8.0 g/dL Alb 3.8 3.5-5.0 g/dL Alk Phos 96 39-117 U/L Vit D 25-OH Tot 40.2 >30 ng/mL Health Based Reference Values* < 20 ng/mL Deficient 20-30 ng/mL Insufficient > 30 ng/mL Sufficient Laboratory Tests 03/01/23 01/25/24 10:28 08:35 Triglycerides 67 Cholesterol 170 LDL Cholesterol, Calc 111 HDL Cholesterol 46 Vitamin B12 335 25-OH Vitamin D Total 40.2 Folate 11.2 Assessment and Plan Assessment & Plan (1) Annual visit for general adult medical examination with abnormal findings: Code(s): Z00.01 - Encounter for general adult medical examination with abnormal findings Plan: Reviewed recent fasting lab results with patient. Recommended dental visit every 6 months and regular eye exams, at least every 2 years. Take adequate calcium in diet and vitamin-D 3 at 2000 IU per cap once a day, in addition to weight-bearing exercises to help maintain good muscle tone and weight control. Instructed to do self-breast exam, and continue with yearly mammogram. Up-to-date with her cervical cancer screening.. Patient refusing any vaccinations but did receive a Tdap in the past (2) Morbid obesity: Comment: bmi 53 07/24/23, working on wt loss w semaglutide and her pcc. Code(s): E66.01 - Morbid (severe) obesity due to excess calories Plan: Continues to lose weight on Wegovy now at 2.4 mg subcutaneously once a week, combined with diet and exercise. (3) Vitamin D deficiency: Code(s): E55.9 - Vitamin D deficiency, unspecified Plan: Continue taking cholecalciferol 50 mcg daily Medications: New cholecalciferol (vitamin D3) 50 mcg PO DAILY 90 caps 4RF Refilled folic acid 1 mg PO DAILY 90 tabs 0RF Coding Level of Care Code Est Pt Prev Care 40-64y(69553) Diagnoses Annual visit for general adult medical examination with abnormal findings Z00.01 Morbid obesity E66.01 Vitamin D deficiency E55.9
== END 2024-03-05 12:09 | disposition home or self-care (01) ==
PROVIDERS: PCP Internal Medicine; Visit Provider Internal Medicine
DX: Z00.00 Encounter for general adult medical examination without abnormal findings (principal); E66.01 Morbid (severe) obesity due to excess calories; Z68.41 Body mass index [BMI] 40.0-44.9, adult; E55.9 Vitamin D deficiency, unspecified
CPT/HCPCS: 99396

== ENCOUNTER 2024-05-05 09:24 | Outpatient (AMB) | payer OTHER, SELFPAY ==
[2024-05-05 09:35] VITALS: BP 122/80; PULSE 76; TEMP 36.4; O2SAT 96
--- NOTE | 2024-05-05 09:35 | AM.OFFWIN_ITS ---
Intake Vital Signs 05/05/24 09:35 Height 5 ft 5 in BP 122/80 Blood Pressure Location Rt brachial Position Sitting Pulse 76 Pulse Source Pulse Oximeter Temp 97.6 F Temp Source Temporal Artery Scan Pulse Oximetry (%) 96 Oxygen Delivery Method Room Air Intake Visit Reasons: EP tick bite lft leg Intake Note: pt is here for tick bite on left leg Patient Tobacco Use Status: Never used Tobacco Allergies No Known Allergies Allergy (Verified 05/05/24 09:46) Do you need a note to return to daycare/school/sports/work: No HPI HPI Comments History of Present Illness Details Patient is a 43-year-old female complaining of a possible tick bite 2 weeks ago. She states she was working around the pool and she noticed something later that night at home, it felt like something was on her leg and it became itchy, she was picking at it. She states she never actually removed a tick or saw a tick but she is worried because it is still itchy and there is a small red ring around the area. [facility] Medical History Cervical cancer screening Vitamin D deficiency Morbid obesity Surgical History Hx of excision of mass Family History Mother Hypertension Anemia Esophageal cancer Father Unknown family medical history Sister Hypothyroid Depression Hypertension Paternal Aunt Ovarian cancer Maternal Grandmother Breast cancer Diabetes mellitus Other Mental health disorder Social History Housing: House Alcohol intake: current Alcohol intake frequency: former alcohol drinker Patient Tobacco Use Status: Never used Tobacco e-Cigarette/Vaping Use: Never Used service: No Current occupational status: employed Cognitive needs: No Hearing needs: No Vision needs: No Female Reproductive History Menstrual Age of Menarche: 12 Review of Systems Const All systems reviewed & are unremarkable except as noted in HPI and below Physical Exam Vital Signs: Last Vital Signs Temp 97.6 F 05/05/24 09:35 Pulse 76 05/05/24 09:35 BP 122/80 05/05/24 09:35 Pulse Ox 96 05/05/24 09:35 Oxygen Delivery Method Room Air 05/05/24 09:35 Const General: cooperative, healthy appearing, comfortable, no acute distress and well developed Orientation/consciousness: patient oriented x3 Limitations: no limitations Eyes General: appearance normal, both eyes and all related structures Resp Effort & Inspection: normal respiratory effort and able to speak in complete sentences Skin Other: Right lower extremity just proximal to the knee there is a 0.5 cm area of erythema, no signs of infection noted, no ecchymosis, no typical erythema migrans rash however there is a small red area surrounding the wound. Neuro General: patient oriented x3 Assessment & Plan Assessment & Plan (1) Bug bite: Code(s): W57.XXXA - Bitten or stung by nonvenomous insect and other nonvenomous arthropods, initial encounter Qualifiers: Encounter type: initial encounter Qualified Code(s): W57.XXXA - Bitten or stung by nonvenomous insect and other nonvenomous arthropods, initial encounter Plan: As this is possibly a tick, and if it was, it came off rather quickly, will give prophylactic dose of doxycycline. Plan see above Medications: New doxycycline hyclate 200 mg (2 x 100 mg) PO ONCE 2 tabs 0RF tick bite ppx Coding Level of Care Code Est Pt Level 3 (55083) Diagnoses Bug bite, initial encounter W57.XXXA Encounter type: initial encounter
== END 2024-05-05 10:06 | disposition home or self-care (01) ==
PROVIDERS: PCP Internal Medicine; Visit Provider Physician Assistant
DX: T63.481A Toxic effect of venom of other arthropod, accidental (unintentional), initial encounter (principal)
CPT/HCPCS: 99213

== ENCOUNTER → 2024-09-24 12:27 | Outpatient (BNVA) | payer OTHER, SELFPAY | PROVIDERS: PCP Internal Medicine; Visit Provider Physician Assistant ==

== ENCOUNTER 2024-09-30 08:31 | Outpatient (REF) | payer OTHER, SELFPAY ==
[2024-09-30 09:57] LABS: MANUAL DIFF FLAG NO
[2024-09-30 09:59] LABS: Basophils Absolute Auto 0.1 X10*3/uL (0.0-0.2); Basophils Percent Auto 0.6 % (0-2); Eosinophils Absolute Auto 0.2 X10*3/uL (0.0-0.4); Eosinophils Percent Auto 1.6 % (0-4); Hemoglobin 13.6 g/dl (12.0-16.0); Imm Gran Abs Auto 0.05 X10*3/uL (0.00-0.03); Imm Gran Pct Auto 0.4 % (0.0-0.4); Lymphocytes Absolute Auto 1.5 X10*3/uL (1.2-4.9); Lymphocytes Percent Auto 13.1 % (20-40); Mean Corpuscular Hemoglobin 31.3 pg (27.0-33.0); Monocytes Absolute Auto 0.8 X10*3/uL (0.1-1.2); Monocytes Percent Auto 6.9 % (2-11); Neutrophils Absolute Auto 9.1 x10*3/uL (2.0-8.3); Neutrophils Percent Auto 77.4 % (45-73); Platelet Count 407 X10*3/uL (160-400); Red Blood Count 4.35 X10*6/uL (4.20-5.50); Red Cell Distribution Width 13.8 % (11.0-16.0); White Blood Count 11.7 X10*3/uL (4.8-10.8)
[2024-09-30 10:27] LABS: Estimated Average Glucose 88 mg/dL; Hemoglobin A1C 95.1658 umol/L; Hemoglobin A1c % 4.7 % (<6.0); Total Hemoglobin (HGBA1C) 3418.8126 umol/L
[2024-09-30 10:29] LABS: Alanine Aminotransferase 14 U/L (0-31); Aspartate Amino Transferase 19 U/L (5-31); Cholesterol 136 mg/dL (<200); Glucose Fasting 93 mg/dL (60-99); HDL Cholesterol 50 mg/dL (>40); LDL Cholesterol Calculated 74 mg/dL (<100); Triglycerides 63 mg/dL (<150)
[2024-09-30 10:50] LABS: Vitamin D 25-OH Total 29.8 ng/mL (>30)
[2024-09-30 10:55] LABS: Folate 3.9 ng/mL (> or = 4.0); Vitamin B12 221 pg/mL (200-900)
== END 2024-09-30 08:32 | disposition home or self-care (01) ==
LOC: HO.HMGCLDS 08:31
PROVIDERS: PCP Internal Medicine; Visit Provider Internal Medicine
DX: E66.01 Morbid (severe) obesity due to excess calories (principal); E55.9 Vitamin D deficiency, unspecified; Z13.220 Encounter for screening for lipoid disorders; Z13.1 Encounter for screening for diabetes mellitus
CPT/HCPCS: 36415; 80061; 82306; 82607; 82746; 82947; 83036; 84450; 84460; 85025

== ENCOUNTER 2025-02-18 15:42 | Outpatient (AMB) | payer OTHER, SELFPAY ==
[2025-02-18 15:43] VITALS: BP 112/70; PULSE 80; RESP 16; TEMP 36.4; O2SAT 100; BMI 45.8
--- NOTE | 2025-02-18 15:43 | MHC.PC.OV ---
Vital Signs 02/18/25 15:43 Height 5 ft 5 in Weight 275 lb BMI 45.8 BP 112/70 Blood Pressure Location Rt brachial Position Sitting Respiration 16 Pulse 80 Pulse Source Pulse Oximeter Temp 97.6 F Temp Source Oral Pulse Oximetry (%) 100 Oxygen Delivery Method Room Air Intake Visit Reasons: F/U medication Intake Note: Pt is here today for her f/u medication Allergies No Known Allergies Allergy (Verified 02/18/25 15:57) Medication List - Last Reconciled 02/18/25 by Aurora Gil MD phentermine-topiramate 3.75-23 mg ER 1 cap PO DAILY 14 days Tobacco use date assessed: 02/18/25 Dental Screening Dental Screen Date: 02/18/25 Did you have a dental visit in the last 12 months?: Yes Did you have a dental problem in the last 6 months where you did not have access to dental care?: Yes Was dental information given to patient?: Patient has dentist HPI F/U medication HPI Details 44-year-old lady with history of morbid obesity, here today for assistance with weight loss. She recently was doing well on Wegovy , and was able to lose weight with the medication in addition to adhering to a healthy diet and getting regular exercise. Unfortunately her new insurance will not cover any GLP 1 agonist. And has started to gain the weight back. Patient states that she has gained at least 25 lb since being off Wegovy . [facility] Medical History (Updated 02/18/25 @ 16:02 by Aurora Gil MD) Cervical cancer screening Vitamin D deficiency Morbid obesity Surgical History Hx of excision of mass Family History Mother Hypertension Anemia Esophageal cancer Father Unknown family medical history Sister Hypothyroid Depression Hypertension Paternal Aunt Ovarian cancer Maternal Grandmother Breast cancer Diabetes mellitus Other Mental health disorder Social History Housing: House Alcohol intake: current Alcohol intake frequency: former alcohol drinker Patient Tobacco Use Status: Never used Tobacco e-Cigarette/Vaping Use: Never Used service: No Current occupational status: employed Cognitive needs: No Hearing needs: No Vision needs: No Female Reproductive History Menstrual Age of Menarche: 12 Questionnaire Thrive Questionnaire Date Thrive assessed: 02/18/25 I am a: Patient What is your living situation today?: I have a steady place to live Within the past 12 months, did the food you bought not last and you didn't have the money to get more?: Never true Within the past 12 months, did you worry whether your food would run out before you got money to buy more?: Never true Do you have trouble paying for medicines?: No Do you have trouble getting transportation to medical appointments?: No Do you have trouble paying your heating and electricity bill?: No Do you have trouble taking care of your child, family member or friend?: No Do you have trouble with day-to-day activities such as bathing, preparing meals, shopping, managing finances, etc.?: No Are you interested in more education?: No THRIVE Score: 0 NEO-7 AMB Questionnaire NEO-7 Date NEO - 7 assessed: 03/05/24 Source: Developed by Drs. Cosme Milian, Fide Boyd, Alvarado Cortez and colleagues, with an educational luciano from [employer] Review of Systems Const All systems reviewed & are unremarkable except as noted in HPI and below Card Denies chest pain, Denies irregular heart rhythm, Reports leg edema (intermittent swelling in both lower extremities at the end of the day) and Denies lightheadedness Resp Reports no additional complaints GI Reports no additional complaints Psych Reports no additional complaints Endo Reports no additional complaints Physical exam (Primary Care) Vital Signs: Last Vital Signs Temp 97.6 F 02/18/25 15:43 Pulse 80 02/18/25 15:43 Resp 16 02/18/25 15:43 BP 112/70 02/18/25 15:43 Pulse Ox 100 02/18/25 15:43 Oxygen Delivery Method Room Air 02/18/25 15:43 BMI result Body Mass Index 45.8 Tobacco/Smoking Status: Tobacco use Status Tobacco use date assessed 02/18/25 02/18/25 15:45 Patient Tobacco Use Status Never used Tobacco 02/18/25 15:45 e-Cigarette/Vaping Use Never Used 02/18/25 15:45 Thrive Assessment: Date of Thrive Assessment Date Thrive assessed 02/18/25 02/18/25 15:50 Const General: comfortable and no acute distress Nutritional Appearance: obese morbidly obese Orientation/consciousness: patient oriented x3 Limitations: no limitations Neck Neck: Yes full ROM, Yes no lymphadenopathy and Yes supple Resp Auscultation: clear to auscultation bilaterally Cardio Other: S1-S2 present regular rate and rhythm, no murmur GI Palpation (GI): Soft to palpation, nontender, no guarding and no masses Neuro General: patient oriented x3, gait normal, moves all extremities and no focal motor deficits Extrem Other: Mild nonpitting swelling in ankles bilateral Coding Level of Care Code Est Pt Level 4 (58664) Diagnoses Morbid obesity E66.01 Assessment & Plan Assessment & Plan (1) Morbid obesity: Comment: bmi 53 07/24/23, working on wt loss w semaglutide and her pcc. Code(s): E66.01 - Morbid (severe) obesity due to excess calories Category: Medical Plan: Prescription sent for phentermine-topiramate 3.75-23 mg ER, to take 1 capsule once a day in a.m.. Combined this with adherence to healthy eating habits, avoidance of lot of processed foods, no soda, no beer, no white bread, start following a Mediterranean diet and get at least 30 minutes of moderate intensity exercise 3 to 4 times a week, see her back for follow-up in 3 Medications: New phentermine-topiramate 3.75-23 mg ER 1 cap PO DAILY 14 days 14 caps 0RF phentermine-topiramate 3.75-23 mg ER 1 cap PO DAILY 30 days 30 caps 0RF
== END 2025-02-18 16:16 | disposition home or self-care (01) ==
LOC: HO.HMCC 15:42
PROVIDERS: PCP Internal Medicine; Visit Provider Internal Medicine
DX: E66.01 Morbid (severe) obesity due to excess calories (principal); Z68.42 Body mass index [BMI] 45.0-49.9, adult

== ENCOUNTER → 2025-02-18 15:42 | Outpatient (BNVA) | payer OTHER, SELFPAY | PROVIDERS: PCP Internal Medicine; Visit Provider Internal Medicine | DX: Z13.89 Encounter for screening for other disorder (principal) ==

== ENCOUNTER 2025-03-22 08:16 | Outpatient (AMB) | payer OTHER, SELFPAY ==
--- NOTE | 2025-03-22 08:25 | MHC.PC.OV ---
Vital Signs 03/22/25 08:35 03/22/25 09:14 Height 5 ft 5 in 5 ft 5 in BP 142/98 H Blood Pressure Location Lt brachial Position Sitting Respiration 24 H Pulse 68 Pulse Source Pulse Oximeter Temp 98.1 F Temp Source Oral Pulse Oximetry (%) 94 Oxygen Delivery Method Room Air Intake Visit Reasons: PE Intake Note: Pt is here for PE. Last mammography was on 08/23/23, Last Pap was on 07/24/23 . Allergies No Known Allergies Allergy (Verified 03/23/25 01:40) Medication List - Last Reconciled 03/23/25 by Aurora Gil MD phentermine 15 mg PO DAILY Wegovy (semaglutide (weight loss)) 0.25 mg (0.5 mL) subcut QWEEK 30 days NS Tobacco use date assessed: 03/22/25 Dental Screening Dental Screen Date: 03/22/25 Did you have a dental visit in the last 12 months?: No Did you have a dental problem in the last 6 months where you did not have access to dental care?: No Was dental information given to patient?: Patient has dentist HPI PE HPI Details - The patient is a 44-year-old female presenting with issues related to weight management and associated symptoms. - She experienced a successful weight loss of 100 pounds using Wegovy but discontinued due to insurance limitations, resulting in subsequent weight regain when switched to Phentermine, which she did not find effective. - She reported significant nausea with higher doses of Wegovy but could tolerate the 0.25 mg dose while still achieving weight loss. - She expressed concerns about food cravings, particularly for salty snacks, contributing to foot swelling. - Development of headache and palpitations was noted during Phentermine use, alongside an elevation in blood pressure, despite discontinuation of Phentermine. [facility] Medical History Cervical cancer screening Vitamin D deficiency Morbid obesity Surgical History Hx of excision of mass Family History Mother Hypertension Anemia Esophageal cancer Father Unknown family medical history Sister Hypothyroid Depression Hypertension Paternal Aunt Ovarian cancer Maternal Grandmother Breast cancer Diabetes mellitus Other Mental health disorder Social History Housing: House Alcohol intake: current Alcohol intake frequency: former alcohol drinker Patient Tobacco Use Status: Never used Tobacco e-Cigarette/Vaping Use: Never Used service: No Current occupational status: employed Cognitive needs: No Hearing needs: No Vision needs: No Female Reproductive History Menstrual Age of Menarche: 12 Questionnaire PHQ-9 Over the last 2 weeks, how often have you been bothered by any of the following problems? 1. Little interest or pleasure in doing things: not at all 2. Feeling down, depressed, or hopeless: not at all 3. Trouble falling or staying asleep, or sleeping too much: not at all 4. Feeling tired or having little energy: not at all 5. Poor appetite or overeating: not at all 6. Feeling bad about yourself - or that you are a failure or have let yourself or your family down: not at all 7. Trouble concentrating on things, such as reading the newspaper or watching television: not at all 8. Moving or speaking so slowly that other people could have noticed. Or the opposite - being so fidgety or restless that you have been moving around a lot more than usual: not at all 9. Thoughts that you would be better off or of hurting yourself in some way: not at all Total score: 0 Depression Screening Interpretation: Negative Depression Screening Done: Yes 89801 - PHQ-9 Billing: Yes Source: Developed by Drs. Cosme Milian, Alvarado Tang and colleagues, with an educational luciano from [employer]. Thrive Questionnaire Date Thrive assessed: 02/18/25 AUDIT C Alcohol Use Questionnaire (AUDIT-C) 1. How often do you have a drink containing alcohol?: Never Total Score: 0 NEO-7 AMB Questionnaire NEO-7 Date NEO - 7 assessed: 03/05/24 Source: Developed by Drs. Cosme Mliian, Alvarado Tang and colleagues, with an educational luciano from [employer]. Review of Systems Const All systems reviewed & are unremarkable except as noted in HPI and below Physical exam (Primary Care) Vital Signs: Last Vital Signs Temp 98.1 F 03/22/25 09:14 Pulse 68 03/22/25 09:14 Resp 24 H 03/22/25 09:14 BP 142/98 H 03/22/25 09:14 Pulse Ox 94 03/22/25 09:14 Oxygen Delivery Method Room Air 03/22/25 09:14 Tobacco/Smoking Status: Tobacco use Status Tobacco use date assessed 03/22/25 03/22/25 08:36 Patient Tobacco Use Status Never used Tobacco 03/22/25 08:25 e-Cigarette/Vaping Use Never Used 03/22/25 08:25 PHQ-9: PHQ-9 Score PHQ-9: Total score 0 03/22/25 09:53 Depression Screening Interpretation: Negative Thrive Assessment: Date of Thrive Assessment Date Thrive assessed 02/18/25 03/22/25 08:25 Advance Care Planning discussion: Completed/Scanned Date of discussion: 03/22/25 Who was present: Patient Forms completed: Health Care Proxy Time spent: 16-45 minutes Actual minutes spent: 2 Const General: no acute distress Nutritional Appearance: obese morbidly obese Orientation/consciousness: patient oriented x3 Limitations: no limitations Neck Neck: Yes full ROM, Yes no lymphadenopathy and Yes supple Resp Auscultation: clear to auscultation bilaterally Cardio Other: S1-S2 present regular rate and rhythm, no murmur GI Palpation (GI): Soft to palpation, nontender, no guarding and no masses Neuro General: patient oriented x3, gait normal, moves all extremities and no focal motor deficits Extrem Other: Mild nonpitting swelling in ankles bilateral Coding Level of Care Code Est Pt Level 3 (87936) Diagnoses Morbid obesity E66.01 Advanced directives, counseling/discussion Z71.89 Additional Codes Vital Signs *Quality* - Advance Care Planning discussion: Completed/Scanned ([id number]) Vital Signs *Quality* - Time spent: 16-45 minutes ([id number]) PHQ-9 - 29567 - PHQ-9 Billing: Yes ([id number]) Assessment & Plan Assessment & Plan (1) Morbid obesity: Comment: bmi 53 07/24/23, working on wt loss w semaglutide and her pcc. Code(s): E66.01 - Morbid (severe) obesity due to excess calories Category: Medical Plan: During the visit, we addressed the patient's need for effective weight loss pharmacotherapy. Wegovy had previously been successful, but changes to Phentermine due to insurance resulted in weight regain and symptoms such as palpitations. The plan includes resuming Wegovy at a lower dose to mitigate nausea, addressing salt cravings to manage swelling, considering magnesium for muscle spasms, and monitoring her blood pressure. Stressed importance of following recommended diet and getting regular exercise at least 30 minutes of moderate intensity exercise 3 to 4 times a week. A follow-up visit will be needed to monitor progress and medication outcomes. Patient was informed and verbally consented to the use of an ambient scribe for clinic note documentation during this visit. (2) Advanced directives, counseling/discussion: Code(s): Z71.89 - Other specified counseling Plan: Initiated the conversation about Advanced Directives. Advanced Directives help patients prepare for current and future decisions about their medical treatment and place of care. Discussed with patient that it is a process where a patients current condition and prognosis are reviewed, their wishes for information regarding their illness are elicited, and likely medical dilemmas are presented and options discussed. Healthcare proxy form completed today. The form can be amended as needed, reviewed yearly and make changes as needed Medications: New Wegovy (semaglutide (weight loss)) 0.25 mg (0.5 mL) subcut QWEEK 2 mL 1RF 30 days NS E66.01 - Morbid (severe) obesity due to excess calories
[2025-03-22 09:14] VITALS: BP 142/98; PULSE 68; RESP 24; TEMP 36.7; O2SAT 94
== END 2025-03-22 09:51 | disposition home or self-care (01) ==
PROVIDERS: PCP Internal Medicine; Visit Provider Internal Medicine
DX: E66.01 Morbid (severe) obesity due to excess calories (principal); Z68.43 Body mass index [BMI] 50.0-59.9, adult; Z71.89 Other specified counseling; Z00.00 Encounter for general adult medical examination without abnormal findings

== ENCOUNTER → 2025-03-22 08:16 | Outpatient (BNVA) | payer OTHER, SELFPAY | PROVIDERS: PCP Internal Medicine; Visit Provider Internal Medicine | DX: E66.01 Morbid (severe) obesity due to excess calories (principal); Z71.89 Other specified counseling | CPT/HCPCS: 96127 ==